=== PATIENT | male | born 1995 | race Native Hawaiian/Other Pacific Islander ===

== ENCOUNTER 2016-10-03 14:25 | Emergency (ER) | payer MEDICAID, OTHER ==
[2016-10-03 14:30] VITALS: BP 122/59; PULSE 76; RESP 16; TEMP 98; O2SAT 99
--- NOTE | 2016-10-03 16:04 | ED PDOC ---
HPI: Back Time Seen by Provider: 10/03/16 14:38 Chief Complaint (Nursing): Back Pain Chief Complaint (Provider): back pain History Per: Patient Additional Complaint(s): pt c/o persistant pain to coccyx area since fall backwards while playing volleyball two weeks ago. c/o intermittant paresthesias to R foot, similar to previous episode of sciatica, none now. no cp, abd pain, n/v/d, urinary c/o, incontinence, numbness, weakness distally. Past Medical History Reviewed: Historical Data, Nursing Documentation, Vital Signs Vital Signs: Last Vital Signs Temp 98.0 F 10/03/16 14:27 Pulse 76 10/03/16 14:27 Resp 16 10/03/16 14:27 BP 122/59 L 10/03/16 14:27 Pulse Ox 99 10/03/16 14:27 - Medical History PMH: No Chronic Diseases - Family History Family History: States: No Known Family Hx - Social History Current smoker - smoking cessation education provided: No Alcohol: None Drugs: Denies - Home Medications Home Medications: Ambulatory Orders Medication Instructions Recorded Ibuprofen [Motrin] 600 mg PO Q8 PRN #6 tab 04/06/15 oxyCODONE/Acetaminophen [Percocet 1 ea PO BID PRN #8 tab 04/06/15 5/325 mg Tab] Ondansetron [Zofran] 4 mg PO Q8H PRN #8 tab 02/20/16 Ranitidine HCl [Zantac 75] 75 mg PO BID PRN #10 tablet 02/20/16 Ibuprofen [Motrin] 600 mg PO Q8 #20 tab 10/03/16 - Allergies Allergies/Adverse Reactions: Allergies Allergy/AdvReac Type Severity Reaction Status Date / Time No Known Allergies Allergy Verified 10/03/16 16:05 Review of Systems ROS Statement: Except As Marked, All Systems Reviewed And Found Negative Musculoskeletal: Positive for: Back Pain Physical Exam - Reviewed Nursing Documentation Reviewed: Yes Vital Signs Reviewed: Yes - Physical Exam Appears: Positive for: Well, Non-toxic, No Acute Distress Skin: Positive for: Normal Color, Warm, DRY Neck: Positive for: Normal, Painless ROM Cardiovascular/Chest: Positive for: Regular Rate, Rhythm Respiratory: Positive for: CNT, Normal Breath Sounds Gastrointestinal/Abdominal: Positive for: Normal Exam, Bowel Sounds, Soft. Negative for: Tenderness Back: Positive for: Normal Inspection, Other (tender coccyx area w/o echymosis, crepitis. SLR neg B/L LE. strength 5/5 B/L LE. ambulates w/o difficulty. n/ v intact distally. ). Negative for: Decreased ROM, Muscle Spasm Extremity: Positive for: Normal ROM. Negative for: Tenderness Neurologic/Psych: Positive for: Alert, Oriented. Negative for: Motor/Sensory Deficits - ECG O2 Sat by Pulse Oximetry: 99 Medical Decision Making Medical Decision Making: coccyx xray no fx no dislocation. will refer to pmd prn. Disposition - Clinical Impression Clinical Impression: Coccygeal injury - Patient ED Disposition Is Patient to be Admitted: No - Disposition Referrals: [facility] [Outside] Disposition: Routine/Home Disposition Time: 16:06 Condition: GOOD Prescriptions: Ibuprofen [Motrin] 600 mg PO Q8 #20 tab Instructions: Acute Low Back Pain (ED) Forms: [facility] ED School/Work Excuse
--- NOTE | 2016-10-03 16:29 | RAD ---
PROCEDURE: Sacrum/coccyx HISTORY: fall COMPARISON: None TECHNIQUE: Standard protocol for this study/examination. FINDINGS: Negative study for fracture. Unremarkable lumbar spine, pelvic osseous structures and visualized. Incidental finding(s): Spina bifida occulta L5 normal variant. IMPRESSION: No acute findings related to/accounting for the clinical presentation. Concordant results with the preliminary interpretation rendered by the emergency department physician procedure.
== END 2016-10-03 16:37 | disposition home or self-care (01) ==
LOC: H.ER 14:25
DX: S39.92XA Unspecified injury of lower back, initial encounter (principal); W19.XXXA Unspecified fall, initial encounter; Y92.89 Other specified places as the place of occurrence of the external cause